=== PATIENT | female | born 1995 | race Caucasian/White ===

== ENCOUNTER 2020-04-11 08:45 | Emergency (ER) | payer OTHER, SELFPAY ==
[2020-04-11 09:08] VITALS: BP 101/62; PULSE 80; RESP 16; TEMP 35.9; O2SAT 99; BMI 26.3
--- NOTE | 2020-04-11 09:18 | XR_ITS ---
EXAMINATION: XR CHEST CLINICAL INFORMATION: Covid like symptoms and exposure. COMPARISON: None TECHNIQUE: AP portable view of the chest was obtained. FINDINGS: No significant abnormality is noted involving the heart, lungs, mediastinum, bony thorax or soft tissues. XR/XR chest 1V IMPRESSION: No acute disease.
--- NOTE | 2020-04-11 09:35 | ED_ITS ---
HPI - URI/Sore Throat General Chief Complaint: Upper Respiratory Symptoms <MASON Turpin Last Filed: 04/11/20 10:17> Stated Complaint: covid symptoms <MASON Turpin Last Filed: 04/11/20 10:17> Time Seen by Provider: 04/11/20 09:17 <MASON Turpin Last Filed: 04/11/20 10:17> Source: patient <MASON Turpin Last Filed: 04/11/20 10:17> Mode of arrival: ambulatory <MASON Turpin Last Filed: 04/11/20 10:17> Limitations: no limitations <MASON Turpin Last Filed: 04/11/20 10:17> History of Present Illness HPI Narrative: 24yoF c No Sig PMHx presenting to the ED c c/o chills, intermittent headaches, dry cough, sob, loss of taste and smell c exposure to COVID-19 her neighbor. Denies any other exposures. Denies recent travel. Denies fevers, neck pain, neck stiffness, productive cough, sore throat, nasal congestion, sinus pain, nausea/vomiting, chest pain, dyspnea on exertion, orthopnea, abdominal pain, diarrhea or dysuria. Denies any other symptoms complaints or concerns at this time <MASON Turpin Last Filed: 04/11/20 10:17> Related Data Home Medications: Previous Rx's Medication Instructions Recorded acetaminophen [Tylenol Extra 1,000 mg PO QID PRN #10 tab 04/11/20 Strength] albuterol sulfate 1 inh INHALATION QID PRN #18 g 04/11/20 azithromycin See Rx Instructions .ROUTE 04/11/20 .COMPLEX #6 tab dexamethasone [Decadron] 12 mg PO DAILY #3 tab 04/11/20 ibuprofen 800 mg PO Q8H PRN #14 tab 04/11/20 <MASON Turpin Last Filed: 04/11/20 10:17> Allergies/Adverse Reactions: Allergies Allergy/AdvReac Type Severity Reaction Status Date / Time No Known Allergies Allergy Verified 04/11/20 09:18 <MASON Turpin Last Filed: 04/11/20 10:17> Review of Systems Review of Systems: Constitutional : No Fever, + Chills, + fatigue, + Malaise ENT/Mouth : No sore throat, No runny nose Eyes: No Discharge Cardiovascular : No Chest Pain, + SOB Respiratory : + Cough, No Sputum, No Wheezing, No Smoke Exposure, No Dyspnea Gastrointestinal : No Nausea, No Vomiting, No Diarrhea Genitourinary : No irregular bleeding, No Dysuria, No Urinary Frequency, No Hematuria, No Urinary Incontinence, No Urgency, No Flank Pain, Musculoskeletal : + Myalgia Skin : No rash Neuro : + Headache <MASON Turpin - Last Filed: 04/11/20 10:17> Yes all other systems are reviewed and are negative <MASON Turpin - Last Filed: 04/11/20 10:17> [facility] Past Medical History Attestation statement: The following information was validated with the patient. <MASON Turpin - Last Filed: 04/11/20 10:17> Medical History: Medical History No known health problems <MASON Turpin - Last Filed: 04/11/20 10:17> Social History Social History: Social History Advance Directives: No Advance Directives Information Provided: No <MASON Turpin - Last Filed: 04/11/20 10:17> Physical Exam Vital Signs: Vital Signs: Last Vital Signs Temp 96.7 F L 04/11/20 09:08 Pulse 80 04/11/20 09:08 Resp 16 04/11/20 09:08 BP 101/62 04/11/20 09:08 Pulse Ox 99 04/11/20 09:08 Body Mass Index 26.3 vital signs have been reviewed as normal and appeared to be correct. Blood pressure normal. Heart rate normal. Respiration rate normal. Temperature normal. Oxygen saturation normal. <MASON Turpin - Last Filed: 04/11/20 10:17> Vital Signs: Last Vital Signs Temp 96.7 F L 04/11/20 09:08 Pulse 80 04/11/20 09:08 Resp 16 04/11/20 09:08 BP 101/62 04/11/20 09:08 Pulse Ox 99 04/11/20 09:08 Body Mass Index 26.3 <José Miguel Al MD - Last Filed: 04/15/20 14:34> Appearance: Alert. Oriented X3. No acute distress. Head: Normal external exam. Normocephalic. Atraumatic. Eyes: PERRLA. EOMI. Conjunctiva and sclera normal. Eyelids normal. ENT: EAC normal. TM's Normal. Pharynx normal. Uvula midline. Moist mucous membranes. No trismus noted. No drooling noted. No muffled voice noted. Neck: Normal inspection. Neck supple. FROM. No adenopathy. No meningeal signs. CVS: Normal heart rate and rhythm. Heart sound normal. No murmurs noted. Pulses normal throughout. Respiratory: No respiratory distress. Painless inspiration. Breath sounds normal. No wheezes/rales/rhonchi noted. Chest nontender. No accessory muscle usage noted or decreased air movement noted. Back: Full range of motion noted. Skin: Skin warm and dry. Normal skin color. Normal skin turgor. No rashes/lesions/lacerations noted. Extremities: Extremities exhibit normal range of motion. Extremities nontender. Neuro: Oriented X 3. No motor deficit. No sensory deficit. Reflexes normal. <MASON Turpin - Last Filed: 04/11/20 10:17> Course Course Course Narrative: 24yoF c No Sig PMHx presenting to the ED c c/o chills, intermittent headaches, dry cough, sob, loss of taste and smell c exposure to COVID-19 her neighbor. - On Exam pt is A&Ox3. Oxygen saturation 99% on room air patient is not tachycardic blood pressure and temperature within normal limits. Not in any acute respiratory distress or any other acute distress. - Plan: SARS/FLU/RSV swab, CXR. If x-ray within normal limits will DC home with symptomatic treatment and antibiotics and instructions to return if any new or worsening symptoms to follow up with primary care provider and to self isolate. Patient understands agrees the plan. <MASON Turpin - Last Filed: 04/11/20 10:17> I have reviewed the chart <José Miguel Al MD - Last Filed: 04/15/20 14:34> MDM - URI/Sore Throat Differential Diagnosis Differential diagnosis: Likely upper respiratory infection, viral infection and bronchitis <MASON Turpin - Last Filed: 04/11/20 10:17> Medical Records Attestation: I reviewed the patient's medical records. <MASON Turpin - Last Filed: 04/11/20 10:17> Lab Data Labs: Lab Results 04/11/20 Range/Units 10:04 Coronavirus (PCR) POSITIVE A (Negative) Influenza Type A (PCR) NEGATIVE (Negative) Influenza Type B (PCR) NEGATIVE (Negative) RSV RNA Qual (PCR) NEGATIVE (Negative) <MASON Turpin - Last Filed: 04/11/20 10:17> Lab Results 04/11/20 Range/Units 10:04 Coronavirus (PCR) POSITIVE A (Negative) Influenza Type A (PCR) NEGATIVE (Negative) Influenza Type B (PCR) NEGATIVE (Negative) RSV RNA Qual (PCR) NEGATIVE (Negative) <José Miguel Al MD - Last Filed: 04/15/20 14:34> Imaging Data Chest x-ray: Attestation: I personally reviewed and interpreted this imaging study as follows: <MASON Turpin - Last Filed: 04/11/20 10:17> Radiologist's impression: TECHNIQUE: AP portable view of the chest was obtained. FINDINGS: No significant abnormality is noted involving the heart, lungs, mediastinum, bony thorax or soft tissues. XR/XR chest 1V IMPRESSION: No acute disease. <MASON Turpin - Last Filed: 04/11/20 10:17> Discharge Plan Discharge Clinical Impression: Viral infection <MASON Turpin Last Filed: 04/11/20 10:17> Patient Disposition: Home, Self-Care <MASON Turpin Last Filed: 04/11/20 10:17> Instructions: Viral Syndrome (ED), COVID-19 (Coronavirus Disease 2019) (ED) <MASON Turpin - Last Filed: 04/11/20 10:17> Additional Instructions: Based on your symptoms and history we have sent a COVID-19. Although your RESULT IS PENDING at this time. RESULTS should return within 72 hours. At this time you will be contacted with either NEGATIVE OR POSITIVE results. -Please wait until we contact you for your results. At this time you will be okay for discharge. Please plan for self quarantine for up to 14 days. Do not expose yourself to others. You may not go to work. If testing does come back negative you may return to activities as long as you are no longer having any symptoms for at least 3 days. Please continue to follow cold instructions and wash your hands frequently. You may take Tylenol as directed on the bottle for pain or fever. Patient seen in the emergency department on 04/11/2020 and should be excused from work until negative test results AND until 72 hours without any symptoms AND at least 10 days have passed since symptoms first appeared or since last exposure to COVID-19 positive patient CDC Guidelines for home isolation: - Stay away from others - WEAR A MASK if you are sick AND STAY HOME - Cover your mouth and nose with a tissue when you cough or sneeze. Dispose of tissues in a lined trash can and wash your hands immediately with soap and water for at least 20 seconds. If soap and water are not available, clean hands with alcohol-based hand health science specialist that contains at least 60% alcohol. - Clean your hands often with soap and water for at least 20 seconds - Avoid touching your eyes, nose and mouth with unwashed hands - Do not share dishes, drinking glasses, cups, eating utensils, towels, or bedding with other people in your home. After using these items, wash them thor oughly with soap and water or put in the calender let off operator. - Clean high-touch surfaces in your isolation area ( sick room and bathroom) every day; let a caregiver clean and disinfect high-touch surfaces in other areas of the home. Clean the area or item with soap and water or another detergent if it is dirty. Then, use a household disinfectant. - Limit contact with pets and animals: If you must care for a pet, wash your hands before and after interacting with them). <MASON Turpin - Last Filed: 04/11/20 10:17> Prescriptions: New azithromycin 250 mg tablet See Rx Instructions .ROUTE .COMPLEX Qty: 6 RF: 0 ibuprofen 800 mg tablet 800 mg PO Q8H PRN (Reason: pain) Qty: 14 RF: 0 acetaminophen [Tylenol Extra Strength] 500 mg tablet 1,000 mg PO QID PRN (Reason: fever or pain) Qty: 10 RF: 0 albuterol sulfate 90 mcg/actuation HFA aerosol inhaler 1 inh inhalation QID PRN (Reason: shortness of breath or wheezing) Qty: 18 RF: 0 dexamethasone [Decadron] 4 mg tablet 12 mg PO DAILY Qty: 3 RF: 0 <MASON Turpin - Last Filed: 04/11/20 10:17> Referrals: Physician,Unknown [Primary Care Provider] - 2 days (your pcp) <MASON Turpin - Last Filed: 04/11/20 10:17> Stand Alone Forms: Work/School Release <MASON Turpin - Last Filed: 04/11/20 10:17> Interventions: ED Discharge Assessment Last Done: 04/11/20 10:22 <MASON Turpin - Last Filed: 04/11/20 10:17> Discharge Date/Time: 04/11/20 10:27 <MASON Turpin - Last Filed: 04/11/20 10:17> Print Language: Mauritian <MASON Turpin - Last Filed: 04/11/20 10:17>
[2020-04-11 10:47] LABS: Influenza A PCR NEGATIVE (Negative); Influenza B PCR NEGATIVE (Negative); Resp Syncy Virus RNA Qual PCR NEGATIVE (Negative)
[2020-04-11 11:57] LABS: SARS COV2 PCR INHOUSE POSITIVE (Negative)
== END 2020-04-11 10:27 | disposition home or self-care (01) ==
PROVIDERS: Physician Assistant Medical; Emergency Provider Emergency Medicine
DX: U07.1 COVID-19 (principal)
CPT/HCPCS: 0241U; 36415; 71045; 99283